=== PATIENT | male | born 1995 ===

== ENCOUNTER 2024-11-24 10:10 | Outpatient (REF) | payer BC, SELFPAY ==
[2024-11-24 14:27] LABS: ALT 122 U/L (16-63); AST 61 U/L (15-37); Albumin 4.1 g/dL (3.4-5.0); Alkaline Phosphatase 129 U/L (46-116); Anion Gap 6.5 mmol/L (3-11); BUN 15 mg/dL (7-18); Bilirubin, Total 0.8 mg/dL (0.2-1.0); CO2 31.5 mmol/L (21.0-32.0); CREATININE 1.2 mg/dL (0.70-1.30); Calcium 9.7 mg/dL (8.5-10.1); Chloride 103 mmol/L (98-107); Estimated GFR 82.92 (mL/min/1.73m2); Glucose 117 mg/dL (74-106); Potassium 4.4 mmol/L (3.5-5.1); Sodium 141 mmol/L (136-145); Total Protein 8.1 g/dL (6.4-8.2)
[2024-11-24 14:34] LABS: Abs Immature Grans 0.03 10^3/uL (0.0-0.06); Absolute Basophil Count 0.04 10^3/uL (0.0-0.2); Absolute Eosinophil Count 0.13 10^3/uL (0.0-0.7); Absolute Lymphocyte Count 1.61 10^3/uL (1.2-3.4); Absolute Neutrophil Count 3.14 10^3/uL (1.2-6.7); Basophils % 0.7 %; Eosinophils % 2.4 %; HGB 16.8 g/dL (13.5-17.5); Immature Grans % 0.6 %; Lymphocytes % 29.5 %; MCH 30.8 pg (27.0-33.0); MCHC 33.6 % (32.0-36.0); MCV 92 fL (80-95); MPV 9.9 fL (8.0-11.0); Monocytes % 9.2 %; Neutrophils % 57.6 %; Platelet Count 209 10^3/uL (130-400); RBC 5.46 10^6/uL (4.36-5.78); RDW 12.4 % (11.8-14.1); RDW-SD 41.3 fL; WBC 5.45 10^3/uL (4.4-10.8)
[2024-11-24 15:02] LABS: Hemoglobin A1C 5.5 % (<5.7)
[2024-11-24 15:37] LABS: Calculated LDL 170 mg/dL (<100); Cholesterol 272 mg/dL (<200); HDL Cholesterol 48 mg/dL (>or=40); Triglyceride 274 mg/dL (<150)
== END 2024-11-24 10:11 | disposition home or self-care (01) ==
LOC: NCHCN 10:10
PROVIDERS: PCP Family Medicine; Visit Provider Physician Assistant
DX: Z13.1 Encounter for screening for diabetes mellitus (principal); Z13.220 Encounter for screening for lipoid disorders; Z13.6 Encounter for screening for cardiovascular disorders
CPT/HCPCS: 80053; 80061; 83036; 85025